=== PATIENT | female | born 1995 | race Native Hawaiian/Other Pacific Islander ===

== ENCOUNTER 2022-11-11 10:29 | Emergency (ER) | payer OTHER ==
[~2022-11-11] VITALS: Ht 160 cm; Wt 73.0 kg
[2022-11-11] MEDS ORDERED: KETOROLAC TROMETHAMINE 30 MG/ML VIAL IVP ONE (11:00)
[2022-11-11] MEDS ORDERED: MECLIZINE HCL 25 MG TABLET PO ONE (11:15)
[2022-11-11] MEDS ORDERED: KETOROLAC TROMETHAMINE 60 MG/2 ML VIAL IM ONE (12:15)
[2022-11-11 14:32] VITALS: BP 141/83
== END 2022-11-11 15:00 | disposition home or self-care (01) ==
LOC: EMS 10:29
DX: R42 Dizziness and giddiness (principal); H66.93 Otitis media, unspecified, bilateral; G43.909 Migraine, unspecified, not intractable, without status migrainosus; Z91.013 Allergy to seafood
CPT/HCPCS: 99285; 70450; 96372; J1885

== ENCOUNTER 2023-03-13 08:28 | Inpatient (IN) | payer OTHER ==
[~2023-03-13] VITALS: Ht 162.6 cm; Wt 66.7 kg
[2023-03-13 09:20] LABS: BASOPHILS % (AUTO) 0.7 % (0.0-2.0); EOSINOPHILS % (AUTO) 0.1 % (1.0-6.0); HEMATOCRIT 39.1 % (36-46); HEMOGLOBIN 12.9 g/dL (12.0-16.0); LYMPHOCYTES # (AUTO) 1.2 K/uL (1.0-4.8); MEAN CORPUSCULAR HEMOGLOBIN 28.3 pg (26.0-34.0); MEAN CORPUSCULAR HGB CONC 32.9 G/dL (31.0-37.0); MEAN CORPUSCULAR VOLUME 86 fL (80-100); MONOCYTES # (AUTO) 0.2 K/uL (0.1-1.0); MONOCYTES % (AUTO) 3.7 % (2.0-9.0); NEUTROPHILS # (AUTO) 4.1 K/uL (1.8-7.7); NEUTROPHILS % (AUTO) 74.5 % (40.0-70.0); PLATELET COUNT (AUTO) 328 K/uL (150-450); RED BLOOD CELL COUNT(AUTO) 4.54 MIL/uL (4.00-5.20); RED CELL DISTRIBUTION WIDTH 12.2 % (11.5-14.5)
[2023-03-13 09:30] LABS: ANION GAP 10 mmol/L (8-16); CALCIUM, TOTAL 8.5 mg/dL (8.8-10.5); CARBON DIOXIDE 22 mmol/L (22-29); CHLORIDE 103 mmol/L (98-107); CREATININE 0.53 mg/dL (0.60-1.30); GLOMERULAR FILTR. RATE CALC > 60 mL/min (>60); GLUCOSE,RANDOM 99 mg/dL (70-110); POTASSIUM 3.5 mmol/L (3.5-5.1); SODIUM SERUM 135 mmol/L (136-145)
[2023-03-13] MEDS ORDERED: OLANZapine 5 MG RAPDIS TABLET PO PRN (09:30)
[2023-03-13] MEDS ORDERED: ZOLPIDEM TARTRATE 10 MG TABLET PO PRN (09:30)
[2023-03-13] MEDS ORDERED: LORazepam 1 MG TABLET PO PRN (09:30)
[2023-03-13] MEDS ORDERED: ACTIVATED CHARCOAL 50 GM/240 ML SUSPENSION PO ONE (09:30)
[2023-03-13 09:35] LABS: ALANINE AMINOTRANSFERASE 9 U/L (12-78); ALBUMIN 3.8 g/dL (3.4-5.0); ALKALINE PHOSPHATASE 51 U/L (46-116); ASPARTATE AMINOTRANSFERASE 6 U/L (15-37); BILIRUBIN,TOTAL 0.4 mg/dL (0.1-1.0); TOTAL PROTEIN, SERUM 7.4 g/dL (6.4-8.2)
[2023-03-13 09:36] LABS: ACETAMINOPHEN < 2 mcg/mL (10-30)
[2023-03-13 09:45] LABS: SALICYLATE 0.9 mg/dL (2.8-20.0)
[2023-03-13] MEDS ORDERED: ESCI-8 PO (09:58)
[2023-03-13 13:24] LABS: ACETAMINOPHEN < 2 mcg/mL (10-30)
[2023-03-13 13:32] LABS: SALICYLATE 1.1 mg/dL (2.8-20.0)
[2023-03-13 14:42] LABS: APPEARANCE,URINE HAZY (CLEAR); BILIRUBIN,URINE NEGATIVE (NEGATIVE); GLUCOSE, URINE (UA) TRACE mg/dL (NEGATIVE); LEUKOCYTE ESTERASE ,URINE LARGE (NEGATIVE); NITRATE,URINE NEGATIVE (NEGATIVE); OCCULT BLOOD,URINE NEGATIVE (NEGATIVE); PROTEIN,URINE TRACE mg/dL (NEGATIVE); SPECIFIC GRAVITIY, URINE 1.012 (1.003-1.030); UROBILINOGEN,URINE <=1.0 mg/dL (<=1.0)
[2023-03-13 14:47] LABS: AMPHET/METH SCREEN,URINE NEGATIVE (NEGATIVE); BARBITURATE SCREEN, URINE NEGATIVE (NEGATIVE); BENZODIAZEPINES SCREEN,URINE NEGATIVE (NEGATIVE); CANNABINOID SCREEN,URINE NEGATIVE (NEGATIVE); COCAINE SCREEN,URINE NEGATIVE (NEGATIVE); METHADONE SCREEN, URINE NEGATIVE (NEGATIVE); OPIATE SCREEN,URINE NEGATIVE (NEGATIVE); PHENCYCLIDINE SCREEN,URINE NEGATIVE (NEGATIVE)
[2023-03-13 14:56] LABS: RBC,URINE 0-2 /HPF (0-2); SQUAMOUS EPITHELIAL CELL,UR Many /LPF (None Seen); WBC,URINE 26-50 /HPF (0-5)
[2023-03-13 14:57] LABS: BACTERIA,URINE Moderate /HPF (None Seen)
[2023-03-13] MEDS ORDERED: LEVOFLOXACIN 500 MG TABLET PO ONE (15:15)
[2023-03-13] MEDS ORDERED: CEPHALEXIN MONOHYDRATE 500 MG CAPSULE PO ONE (15:15)
[2023-03-13 15:44] LABS: COVID AG,FIA SOURCE NASAL SWAB
[2023-03-13] MEDS ORDERED: MAG HYDROX/AL HYDROX/SIMETH ES 30 ML SUSPENSION UDCUP PO PRN (16:45)
[2023-03-13] MEDS ORDERED: HydrOXYzine PAMOATE 50 MG CAPSULE PO PRN (16:45)
[2023-03-13] MEDS ORDERED: LOPERAMIDE HCL 2 MG CAPSULE PO PRN (16:45)
[2023-03-13] MEDS ORDERED: MAGNESIUM HYDROXIDE SUSPENSION 30 ML UDCUP PO PRN (16:45)
[2023-03-13] MEDS ORDERED: GuaiFENesin/D-METHORPHAN [SUGAR-FREE] 200-20MG/10 ML SYRUP UDCUP PO PRN (16:45)
[2023-03-13] MEDS ORDERED: PROMETHAZINE HCL 25 MG TABLET PO PRN (16:45)
[2023-03-13] MEDS ORDERED: TUBERCULIN, PURIFIED PROTEIN DERIVATIVE 5 TU/0.1 ML SYRINGE ID ONE (16:45)
[2023-03-13] MEDS ORDERED: ACETAMINOPHEN 325 MG TABLET PO PRN (16:45)
[2023-03-13 17:05] VITALS: BP 140/103; PULSE 114; RESP 18; TEMP 98.1; O2SAT 98
[2023-03-13] MEDS: THIAMINE 100 MG TABLET PO SCH (17:45)
[2023-03-13 20:47] VITALS: BP 118/88; PULSE 83; RESP 18; TEMP 97.7; O2SAT 99
[2023-03-13] MEDS: MELATONIN 5 MG TABLET PO SCH (20:53)
[2023-03-14 06:30] LABS: HEMOGLOBIN A1C 4.9 % (3.8-5.6)
[2023-03-14 06:32] LABS: CHOL/HDL RATIO 3.4 (3.9-5.7); FREE T4 (FREE THYROXINE) 1.06 ng/dL (0.76-1.46)
[2023-03-14] MEDS: NALTREXONE HCL 50 MG TABLET PO SCH (08:58)
[2023-03-14] MEDS: LEVOFLOXACIN 500 MG TABLET PO SCH (08:58)
[2023-03-14] MEDS: MULTIVITAMINS WITH MINERALS, THERAPEUTIC TABLET PO SCH (08:58)
[2023-03-14] MEDS: OMEGA-3/DHA/EPA/FISH OIL 1,000 MG CAPSULE PO SCH (08:58)
[2023-03-14] MEDS: DEXTROMETHORPHAN HBR/QUINIDINE 20/10 MG CAPSULE PO SCH (08:58)
[2023-03-14] MEDS: FOLIC ACID 1 MG TABLET PO SCH (08:58)
[2023-03-14] MEDS: THIAMINE 100 MG TABLET PO SCH ×2 (09:00→17:29)
[2023-03-14] MEDS ORDERED: FLUoxetine HCL 10 MG CAPSULE PO SCH (09:00)
[2023-03-14 09:20] VITALS: BP 122/83; PULSE 80; RESP 18; TEMP 97.5; O2SAT 100
[2023-03-14] MEDS ORDERED: HydrOXYzine PAMOATE 50 MG CAPSULE PO PRN (15:30)
[2023-03-14] MEDS: MELATONIN 5 MG TABLET PO SCH (21:27)
[2023-03-14 23:10] VITALS: BP 132/72; PULSE 87; RESP 18; TEMP 98.1; O2SAT 97
[2023-03-15] MEDS ORDERED: ESCITALOPRAM OXALATE 10 MG TABLET PO SCH (09:00)
[2023-03-15] MEDS: OMEGA-3/DHA/EPA/FISH OIL 1,000 MG CAPSULE PO SCH (09:07)
[2023-03-15] MEDS: DEXTROMETHORPHAN HBR/QUINIDINE 20/10 MG CAPSULE PO SCH (09:08)
[2023-03-15] MEDS: THIAMINE 100 MG TABLET PO SCH ×2 (09:08→17:39)
[2023-03-15] MEDS: NALTREXONE HCL 50 MG TABLET PO SCH (09:08)
[2023-03-15] MEDS: MULTIVITAMINS WITH MINERALS, THERAPEUTIC TABLET PO SCH (09:08)
[2023-03-15] MEDS: FOLIC ACID 1 MG TABLET PO SCH (09:08)
[2023-03-15] MEDS: LEVOFLOXACIN 500 MG TABLET PO SCH (09:08)
[2023-03-15 10:03] VITALS: BP 123/78; PULSE 100; RESP 19; TEMP 97.6; O2SAT 98
[2023-03-15] MEDS ORDERED: NALT50TA PO (16:41)
[2023-03-15] MEDS ORDERED: MELA5TAB40 PO (16:41)
[2023-03-15] MEDS ORDERED: ESCI-8 PO (16:41)
[2023-03-15] MEDS ORDERED: HYDR50CA7 PO (16:41)
[2023-03-15] MEDS ORDERED: OMEG-135 PO (16:41)
[2023-03-15 20:59] VITALS: BP 120/79; PULSE 80; RESP 18; TEMP 97.5
[2023-03-15] MEDS: MELATONIN 5 MG TABLET PO SCH (21:44)
[2023-03-16] MEDS: THIAMINE 100 MG TABLET PO SCH (08:41)
[2023-03-16] MEDS: MULTIVITAMINS WITH MINERALS, THERAPEUTIC TABLET PO SCH (08:41)
[2023-03-16] MEDS: OMEGA-3/DHA/EPA/FISH OIL 1,000 MG CAPSULE PO SCH (08:41)
[2023-03-16] MEDS: LEVOFLOXACIN 500 MG TABLET PO SCH (08:41)
[2023-03-16] MEDS: FOLIC ACID 1 MG TABLET PO SCH (08:41)
[2023-03-16] MEDS: DEXTROMETHORPHAN HBR/QUINIDINE 20/10 MG CAPSULE PO SCH (08:41)
[2023-03-16] MEDS: NALTREXONE HCL 50 MG TABLET PO SCH (08:41)
[2023-03-16] MEDS ORDERED: ESCITALOPRAM OXALATE 10 MG TABLET PO SCH (09:00)
[2023-03-16 09:10] VITALS: BP 121/80; PULSE 75; RESP 17; TEMP 97.7; O2SAT 97
== END 2023-03-16 16:00 | disposition home or self-care (01) | DRG 885 ==
LOC: EMS 08:29 → 3EI 15:37
PROVIDERS: ADMIT Psychiatry & Neurology Psychiatry; ATTEND Psychiatry & Neurology Psychiatry
DX: F33.2 Major depressive disorder, recurrent severe without psychotic features (principal); T43.592A Poisoning by other antipsychotics and neuroleptics, intentional self-harm, initial encounter; R45.851 Suicidal ideations; G43.909 Migraine, unspecified, not intractable, without status migrainosus; Z20.822 Contact with and (suspected) exposure to COVID-19; T43.222A Poisoning by selective serotonin reuptake inhibitors, intentional self-harm, initial encounter; Y92.89 Other specified places as the place of occurrence of the external cause; Z59.9 Problem related to housing and economic circumstances, unspecified; Z65.3 Problems related to other legal circumstances; Z63.9 Problem related to primary support group, unspecified; Z55.9 Problems related to education and literacy, unspecified; Z79.899 Other long term (current) drug therapy; Z91.013 Allergy to seafood; Z56.0 Unemployment, unspecified
CPT/HCPCS: 80053; 80061; 80307; 81001; 83036; 84439; 84443; 84703; 85025; 86592; 87086; 87186; 93005; 99291; G0480; G0481; Q9967

== ENCOUNTER 2024-12-11 16:28 | Emergency (ER) | payer OTHER ==
[~2024-12-11] VITALS: Ht 157.5 cm; Wt 77.0 kg
[~2024-12-11 16:28] MED LIST: ESCI-8 PO; HYDR50CA7 PO; MELA5TAB40 PO; NALT50TA6 PO; OMEG-135 PO
[2024-12-11 16:39] VITALS: TEMP 98.6
[2024-12-11 17:24] LABS: HEMATOCRIT 42.1 % (36-46); MEAN CORPUSCULAR HEMOGLOBIN 28.3 pg (26.0-34.0); MEAN CORPUSCULAR HGB CONC 33.2 G/dL (31.0-37.0); MONOCYTES # (AUTO) 0.3 K/uL (0.1-1.0); NEUTROPHILS # (AUTO) 3.3 K/uL (1.8-7.7); WHITE BLOOD COUNT (AUTO) 5.5 K/uL (4.5-11.0)
[2024-12-11 17:29] LABS: BASOPHILS % (AUTO) 0.3 % (0.0-2.0); EOSINOPHILS % (AUTO) 0.4 % (1.0-6.0); LYMPHOCYTES # (AUTO) 1.9 K/uL (1.0-4.8); LYMPHOCYTES % (AUTO) 33.7 % (22.0-44.0); MEAN CORPUSCULAR VOLUME 85 fL (80-100); MONOCYTES % (AUTO) 6.3 % (2.0-9.0); NEUTROPHILS % (AUTO) 59.3 % (40.0-70.0); PLATELET COUNT (AUTO) 343 K/uL (150-450); RED BLOOD CELL COUNT(AUTO) 4.95 MIL/uL (4.00-5.20); RED CELL DISTRIBUTION WIDTH 12.4 % (11.5-14.5)
[2024-12-11 17:35] LABS: CALCIUM, TOTAL 9.1 mg/dL (8.8-10.5); CARBON DIOXIDE 24 mmol/L (22-29); GLOMERULAR FILTR. RATE CALC > 60 mL/min (>60); GLUCOSE,RANDOM 86 mg/dL (70-110); SODIUM SERUM 138 mmol/L (136-145); UREA NITROGEN, BLOOD 11 mg/dL (7-18)
[2024-12-11 17:40] LABS: B-TYPE NATRIURETIC PEPTIDE < 5 pg/mL (0-100)
[2024-12-11 17:41] LABS: ALBUMIN 4.3 g/dL (3.4-5.0); BILIRUBIN,DIRECT 0.1 mg/dL (0.00-0.20); BILIRUBIN,TOTAL 0.7 mg/dL (0.1-1.0); TOTAL PROTEIN, SERUM 7.9 g/dL (6.4-8.2)
[2024-12-11 17:47] LABS: CREATINE KINASE, TOTAL ONLY 42 U/L (26-192); TROPONIN I-HIGH SENSITIVITY 4 ng/L (<51)
[2024-12-11] MEDS: SODIUM CHLORIDE 0.9% 1,000 ML IV ONE (18:04)
[2024-12-11] MEDS: MethylPREDNISolone SOD SUCC 125 MG/2 ML VIAL IVP ONE (18:04)
[2024-12-11] MEDS: DiphenhydrAMINE HCL 50 MG/ML VIAL IVP ONE (18:04)
[2024-12-11] MEDS: FAMOTIDINE 20 MG/2 ML VIAL IVP ONE (18:04)
[2024-12-11] MEDS: EPINEPHrine 1:1,000 [1 MG/ML] VIAL IM ONE (18:05)
[2024-12-11] MEDS ORDERED: EPIN0.3P3 IM (21:23)
[2024-12-11] MEDS ORDERED: PRED-554 PO (21:23)
[2024-12-11] MEDS ORDERED: DIPH-1243 PO (21:23)
[2024-12-11 23:25] VITALS: BP 121/72; PULSE 74; RESP 18; O2SAT 97
[2024-12-12 14:48] LABS: ANION GAP 11 mmol/L (8-16); CHLORIDE 103 mmol/L (98-107)
== END 2024-12-12 00:04 | disposition home or self-care (01) ==
LOC: EMS 16:28
DX: T78.02XA Anaphylactic reaction due to shellfish (crustaceans), initial encounter (principal); Z79.899 Other long term (current) drug therapy; X58.XXXA Exposure to other specified factors, initial encounter
CPT/HCPCS: 99291; 96374; 96375; 71045; 96361; 80048; 80076; 82550; 83880; 84484; 84703; 85025; 36415; 93005; 96372; J2919; J1200; J0171; J3490; J7030

== ENCOUNTER 2025-07-04 13:05 | Emergency (ER) | payer OTHER ==
[~2025-07-04] VITALS: Ht 157.5 cm; Wt 69.1 kg
[~2025-07-04 13:05] MED LIST changes: +DIPH-1243 PO; +EPIN0.3P3 IM; +PRED-554 PO
[2025-07-04 13:39] VITALS: TEMP 98.1
[2025-07-04 14:01] LABS: RED BLOOD CELL COUNT(AUTO) 4.61 MIL/uL (4.00-5.20)
[2025-07-04 14:05] LABS: PLATELET COUNT (AUTO) 317 K/uL (150-450); RED CELL DISTRIBUTION WIDTH 12.4 % (11.5-14.5); WHITE BLOOD COUNT (AUTO) 5.8 K/uL (4.5-11.0)
[2025-07-04 14:09] LABS: CALCIUM, TOTAL 9.1 mg/dL (8.8-10.5); CREATININE 0.50 mg/dL (0.60-1.30); GLOMERULAR FILTR. RATE CALC > 60 mL/min (>60); GLUCOSE,RANDOM 81 mg/dL (70-110); SODIUM SERUM 137 mmol/L (136-145); UREA NITROGEN, BLOOD 6 mg/dL (7-18)
[2025-07-04 15:08] VITALS: BP 121/81; PULSE 67; RESP 18; O2SAT 100
[2025-07-04] MEDS ORDERED: ACET-66 PO (15:53)
[2025-07-04] MEDS ORDERED: HYDR-4808 PO (15:53)
[2025-07-04] MEDS ORDERED: MECL-134 PO (15:53)
== END 2025-07-04 16:34 | disposition home or self-care (01) ==
LOC: EMS 13:06
DX: R42 Dizziness and giddiness (principal); G43.909 Migraine, unspecified, not intractable, without status migrainosus; Z79.899 Other long term (current) drug therapy; Z79.52 Long term (current) use of systemic steroids; Z91.013 Allergy to seafood
CPT/HCPCS: 80048; 84703; 85025; 99283